=== PATIENT | male | born 2000 | race Hispanic/Latino ===

== ENCOUNTER 2023-06-02 20:16 | Emergency (ER) | payer MEDICAID ==
[~2023-06-02] VITALS: Ht 182.9 cm; Wt 119.7 kg
[2023-06-02 20:36] VITALS: BP 115/60; PULSE 78; RESP 14; O2SAT 97
== END 2023-06-02 21:06 | disposition home or self-care (01) ==
LOC: EDH 20:16
DX: L02.31 Cutaneous abscess of buttock (principal)
CPT/HCPCS: 10060; 99282